=== PATIENT | female | born 1970 | race Two or more races ===

== ENCOUNTER 2020-09-05 15:35 | Emergency (ER) | payer BC ==
[~2020-09-05] VITALS: Ht 160 cm; Wt 80.0 kg
[2020-09-05 15:46] VITALS: BP 123/81
== END 2020-09-05 17:54 | disposition home or self-care (01) ==
LOC: ER 15:38
DX: H53.8 Other visual disturbances (principal); E11.69 Type 2 diabetes mellitus with other specified complication; Z88.5 Allergy status to narcotic agent
CPT/HCPCS: 99282